=== PATIENT | male | born 1970 | race Two or more races ===

== ENCOUNTER 2021-02-18 15:57 | Emergency (ER) | payer OTHER ==
[~2021-02-18] VITALS: Ht 185.4 cm; Wt 108.9 kg
[2021-02-18] MEDS ORDERED: COZAAR25 MG PO (16:04)
[2021-02-18] MEDS ORDERED: FLAGYL500MG PO (18:58)
[2021-02-18] MEDS ORDERED: CIPRO500 MG PO (18:58)
[2021-02-18] MEDS ORDERED: DICY20TA PO (18:58)
[2021-02-18] MEDS ORDERED: OMEPRAZOLE40 MG PO (18:58)
== END 2021-02-18 19:19 | disposition home or self-care (01) ==
LOC: ER 15:57
DX: K57.80 Diverticulitis of intestine, part unspecified, with perforation and abscess without bleeding (principal)

== ENCOUNTER 2021-10-24 12:59 | Emergency (ER) | payer OTHER ==
[~2021-10-24] VITALS: Ht 185.4 cm; Wt 117.9 kg
[~2021-10-24 12:59] MED LIST: CIPRO500 MG PO; COZAAR25 MG PO; DICY20TA PO; FLAGYL500MG PO; OMEPRAZOLE40 MG PO
== END 2021-10-24 15:28 | disposition home or self-care (01) ==
LOC: ER 12:59
DX: K52.9 Noninfective gastroenteritis and colitis, unspecified (principal); Z20.822 Contact with and (suspected) exposure to COVID-19

== ENCOUNTER 2022-09-20 16:41 | Emergency (ER) | payer OTHER ==
[~2022-09-20] VITALS: Ht 185.4 cm; Wt 113.4 kg
== END 2022-09-20 22:23 | disposition home or self-care (01) ==
LOC: ER 16:41
DX: R50.9 Fever, unspecified (principal); Z20.822 Contact with and (suspected) exposure to COVID-19